=== PATIENT | female | born 1975 | race Two or more races ===

== ENCOUNTER 2025-06-02 12:11 | Inpatient (IN) | payer OTHER ==
[~2025-06-02] VITALS: Ht 160 cm; Wt 58.1 kg
[2025-06-02 13:10] LABS: BASO % 1.2 % (0.1-1.2); EOS # 0.07 (0.04-0.54); EOS % 1.7 % (0.7-7.0); LYMPH # 1.38 (1.18-3.74); LYMPH % 33.3 % (19.3-53.1); MEAN PLATELET VOLUME 9.60 fl (9.4-12.4); MONO # 0.36 (0.24-0.82); MONO % 8.7 % (4.7-12.5); NEUT # 2.29 (1.56-6.13); NEUT % 55.1 % (34.0-71.1); RED CELL DISTRIBUTION WIDTH 12.0 % (11.6-14.4)
[2025-06-02 13:26] LABS: ALT/SGPT 15.0 U/L (12-78); AST/SGOT 11.0 U/L (15-37); BILIRUBIN TOTAL 0.41 mg/dL (0.3-1.2); BUN CREA RATIO 29.0 (7.0-25.0); CREATININE SERUM 0.63 mg/dL (0.55-1.02); GFR 100.02; GLOBULINA 3.6 G/DL (2.4-3.5); GLUCOSE FASTING 100.0 mg/dL (65-100); OSMOLALITY SERUM 283.0 MOSM/KG (275-295)
[2025-06-02 13:27] LABS: URINE APPEARANCE Clear; URINE BILIRRUBIN Negative (NEGATIVE); URINE BLOOD Small; URINE COLOR Yellow; URINE GLUCOSE Negative (NEGATIVE); URINE KETONE Negative (NEGATIVE); URINE LEUKOCYTE Negative; URINE NITRATE Negative; URINE PROTEIN Negative (NEGATIVE); URINE UROBILINOGEN 0.2 E.U./dl
[2025-06-02 13:30] LABS: INR 1.0
[2025-06-02 13:31] LABS: URINE BACTERIA 5.7 uL (0.0-1933); URINE EPITHELIAL CELLS 7.1 uL (0.0-38.8); URINE RBC 13.5 uL (0.0-20.8); URINE WBC 10.7 uL (0.0-23.2)
[2025-06-02 13:37] LABS: URINE CAST 0.00 uL (0.0-1.40)
[2025-06-09] MEDS ORDERED: ERTAPENEM SODIUM 1,000 MG VIAL ONE (07:18)
[2025-06-09] MEDS ORDERED: BUPIVACAINE HCL/MPF 0.5% 30ML VIAL ONE (09:38)
[2025-06-09] MEDS ORDERED: LIDOCAINE HCL 1%/EPINEPHRINE 20ML VIAL IJ ONE (09:38)
[2025-06-09] MEDS ORDERED: DIPHENHYDRAMINE HCL 50 MG/ML VIAL 1ML ONE (09:51)
[2025-06-09] MEDS ORDERED: RINGERS SOLUTION,LACTATED 1,000 ML IV SCH (12:30)
[2025-06-09] MEDS ORDERED: DEXTROSE 50 % IN WATER 0.5 G/ML DISP.SYRIN IV PRN (12:30)
[2025-06-09] MEDS ORDERED: ONDANSETRON HCL 2 MG/ML VIAL IV PRN (12:30)
[2025-06-09] MEDS ORDERED: SIMETHICONE 125 MG CAPSULE PO SCH (13:00)
[2025-06-09] MEDS ORDERED: HYOSCYAMINE SULFATE 0.125 MG TAB.SUBL SL SCH (13:00)
[2025-06-09 13:50] LABS: BASO % 0.2 % (0.1-1.2); EOS # 0.01 (0.04-0.54); EOS % 0.1 % (0.7-7.0); LYMPH # 0.64 (1.18-3.74); LYMPH % 8.0 % (19.3-53.1); MEAN PLATELET VOLUME 9.90 fl (9.4-12.4); MONO # 0.19 (0.24-0.82); MONO % 2.4 % (4.7-12.5); NEUT # 7.12 (1.56-6.13); NEUT % 88.9 % (34.0-71.1); RED CELL DISTRIBUTION WIDTH 11.9 % (11.6-14.4)
[2025-06-09] MEDS ORDERED: ACETAMINOPHEN 500 MG GEL..CAP PO SCH (14:00)
[2025-06-09] MEDS ORDERED: GABAPENTIN 300 MG CAPSULE PO ONE (15:59)
[2025-06-09] MEDS ORDERED: HYOSCYAMINE SULFATE 0.125 MG TAB.SUBL ONE (15:59)
[2025-06-09 16:00] VITALS: BP 109/70; O2SAT 97
[2025-06-09] MEDS ORDERED: METOCLOPRAMIDE HCL 5 MG/ML VIAL IV SCH (17:00)
[2025-06-09] MEDS ORDERED: GABAPENTIN 300 MG CAPSULE PO SCH (17:00)
[2025-06-09] MEDS ORDERED: FAMOTIDINE/PF 20 MG/2 ML VIAL IV PUSH SCH (21:00)
[2025-06-10 01:08] VITALS: BP 96/64; O2SAT 97
[2025-06-10 07:47] LABS: BASO % 0.0 % (0.1-1.2); EOS # 0.00 (0.04-0.54); EOS % 0.0 % (0.7-7.0); LYMPH # 0.49 (1.18-3.74); LYMPH % 5.3 % (19.3-53.1); MEAN PLATELET VOLUME 9.70 fl (9.4-12.4); MONO # 0.37 (0.24-0.82); MONO % 4.0 % (4.7-12.5); NEUT # 8.31 (1.56-6.13); NEUT % 90.3 % (34.0-71.1); RED CELL DISTRIBUTION WIDTH 11.9 % (11.6-14.4)
[2025-06-10 08:02] VITALS: BP 98/63; O2SAT 95
[2025-06-10 08:17] LABS: BUN CREA RATIO 13.0 (7.0-25.0); CREATININE SERUM 0.63 mg/dL (0.55-1.02); GFR 100.02; GLUCOSE FASTING 125.0 mg/dL (65-100); OSMOLALITY SERUM 279.0 MOSM/KG (275-295)
[2025-06-10] MEDS ORDERED: METHYLPREDNISOLONE SOD SUCC 40 MG VIAL IV SCH (09:00)
[2025-06-10] MEDS ORDERED: LACTULOSE 20 G/30 ML BLIST.PACK PO SCH (09:00)
[2025-06-10] MEDS ORDERED: LACTOBACILLUS ACIDOPHILUS 1 CAP CAP PO SCH (09:00)
[2025-06-10] MEDS ORDERED: ENOXAPARIN SODIUM 40 MG/0.4 ML SYRINGE SUBCUTANEO SCH (17:00)
[2025-06-10 17:17] VITALS: BP 100/66; O2SAT 94
[2025-06-10 23:54] VITALS: BP 95/54; O2SAT 94
[2025-06-11 08:35] VITALS: BP 108/75; O2SAT 95
[2025-06-11] MEDS ORDERED: ENOXAPARIN SODIUM 40 MG/0.4 ML SYRINGE SUBCUTANEO SCH (09:00)
[2025-06-11 17:26] VITALS: BP 108/72; O2SAT 95
== END 2025-06-11 20:45 | disposition home or self-care (01) | DRG 330 ==
LOC: SURH 06-09 07:00 → O/R 06-09 07:00 → SURH 06-09 12:15
PROVIDERS: ADMIT Colon & Rectal Surgery; ATTEND Colon & Rectal Surgery
PROC: 0DBP4ZZ Excision of Rectum, Percutaneous Endoscopic Approach (ICD-10-PCS; 2025-06-09)
PROC: 0DJD8ZZ Inspection of Lower Intestinal Tract, Via Natural or Artificial Opening Endoscopic (ICD-10-PCS; 2025-06-09)
PROC: 0DTN4ZZ Resection of Sigmoid Colon, Percutaneous Endoscopic Approach (ICD-10-PCS; principal; 2025-06-09 19:30)
DX: K57.32 Diverticulitis of large intestine without perforation or abscess without bleeding (principal); K92.1 Melena; K66.0 Peritoneal adhesions (postprocedural) (postinfection); Z88.6 Allergy status to analgesic agent; Z91.040 Latex allergy status; Z91.013 Allergy to seafood

== ENCOUNTER 2025-06-28 12:05 | Emergency (ER) | payer OTHER ==
[~2025-06-28] VITALS: Ht 160 cm; Wt 54.4 kg
[2025-06-28 13:33] VITALS: BP 124/84; O2SAT 100
[2025-06-28] MEDS ORDERED: 0.9 % SODIUM CHLORIDE 1,000 ML IV ONE (17:30)
[2025-06-28] MEDS ORDERED: FAMOTIDINE/PF 20 MG/2 ML VIAL IV ONE (17:30)
[2025-06-28] MEDS ORDERED: ONDANSETRON HCL 2 MG/ML VIAL IV ONE (17:30)
[2025-06-28] MEDS ORDERED: DIATRIZOATE MEGLUMINE, SODIUM 30 ML BOTTLE PO ONE (17:30)
[2025-06-28] MEDS ORDERED: HYOSCYAMINE SULFATE 0.125 MG TAB.SUBL SL ONE (17:30)
[2025-06-28 17:55] LABS: BASO % 0.5 % (0.1-1.2); EOS # 0.04 (0.04-0.54); EOS % 0.6 % (0.7-7.0); LYMPH # 1.61 (1.18-3.74); LYMPH % 25.6 % (19.3-53.1); MEAN PLATELET VOLUME 9.10 fl (9.4-12.4); MONO # 0.44 (0.24-0.82); MONO % 7.0 % (4.7-12.5); NEUT # 4.15 (1.56-6.13); NEUT % 66.0 % (34.0-71.1); RED CELL DISTRIBUTION WIDTH 12.2 % (11.6-14.4)
[2025-06-28 18:17] LABS: INR 1.07
[2025-06-28 18:23] LABS: ALT/SGPT 33.0 U/L (12-78); AST/SGOT 17.0 U/L (15-37); BILIRUBIN TOTAL 0.65 mg/dL (0.3-1.2); BUN CREA RATIO 21.0 (7.0-25.0); CREATININE SERUM 0.78 mg/dL (0.55-1.02); GFR 78.17; GLOBULINA 4.1 G/DL (2.4-3.5); GLUCOSE FASTING 112.0 mg/dL (65-100); OSMOLALITY SERUM 283.0 MOSM/KG (275-295)
[2025-06-28 19:35] LABS: URINE APPEARANCE Cloudy; URINE BILIRRUBIN Negative (NEGATIVE); URINE BLOOD Moderate; URINE COLOR Yellow; URINE GLUCOSE Negative (NEGATIVE); URINE LEUKOCYTE Trace; URINE NITRATE Negative; URINE PROTEIN 30 (NEGATIVE); URINE UROBILINOGEN 0.2 E.U./dl
[2025-06-28 19:36] LABS: URINE BACTERIA 231.0 uL (0.0-1933); URINE CAST 1.41 uL (0.0-1.40); URINE EPITHELIAL CELLS 67.4 uL (0.0-38.8); URINE RBC 25.9 uL (0.0-20.8); URINE WBC 68.2 uL (0.0-23.2)
[2025-06-28 19:46] LABS: URINE CRYSTALS FEW /HPF; URINE KETONE 40 (NEGATIVE)
[2025-06-28] MEDS ORDERED: POLY119PG PO (23:13)
[2025-06-28] MEDS ORDERED: PEPCID AC20 MG PO (23:13)
[2025-06-28] MEDS ORDERED: BACTRIM DS TAB1 EACH PO (23:13)
== END 2025-06-28 23:21 | disposition home or self-care (01) ==
LOC: ER 12:06
PROVIDERS: General Practice
DX: K59.09 Other constipation (principal); Z98.890 Other specified postprocedural states; Z88.6 Allergy status to analgesic agent; Z88.8 Allergy status to other drugs, medicaments and biological substances